=== PATIENT | female | born 2000 | race African-American/Black ===

== ENCOUNTER 2024-03-15 12:24 | Emergency (ER) | payer OTHER ==
[2024-03-15] MEDS ORDERED: Haloperidol Lactate 5 MG/ML VIAL ONE (12:46)
[2024-03-15] MEDS ORDERED: diphenhydrAMINE 50 MG/ML VIAL ONE (12:46)
[2024-03-15] MEDS ORDERED: LORazepam 2 MG/ML SYR.(CARPUJECT) ONE (12:46)
[2024-03-15 14:25] LABS: #Basophils 0.04 10x3/uL (0.0-0.2); #Eosinphils Less than 0.03 10x3/uL (0.0-0.7); %Basophils 0.7 % (0.0-1.0); %Eosinophils 0.3 % (0.0-10.0); %Lymphocytes 30.4 % (21.0-51.0); %Monocytes 7.3 % (0.0-10.0); %Neutrophils 61.1 % (42.0-75.0); Hematocrit 41.2 % (36.0-47.0); Hemoglobin 13.2 g/dL (12.0-16.0); Mean Corpuscular Hemoglobin 28.9 pg (27.0-31.0); Mean Corpuscular Volume 90.4 fL (78.0-98.0); Mean Platelet Volume 10.8 fL (7.4-10.4); Platelet Count 300 10x3/uL (130-400); RBC Distribution Width 12.7 % (11.5-14.5); Red Blood Cell (RBC) Count 4.56 mill/uL (4.20-5.40)
[2024-03-15 14:41] LABS: BHCG - Serum Negative (NEGATIVE); Pregs Control Background? CLEAR/WHITE (CLR/WHITE); Pregs Control Bar Appear? YES (CONTROL BAR)
[2024-03-15 14:44] LABS: ALT (SGPT) 98 U/L (8-55); AST (SGOT) 75 U/L (5-34); Alkaline Phosphatase 80 U/L (40-110); Anion Gap 20 mmol/L (10-20); BUN (Urea Nitrogen) 5 mg/dL (7.0-18.7); Bilirubin, Total 0.6 mg/dL (0.2-1.2); Calc. Creatinine Clearance 0 mL/min (70-130); Calcium 9.3 mg/dL (7.8-10.44); Carbon Dioxide 20 mmol/L (22-29); Chloride 112 mmol/L (98-107); Estimated GFR 97; Globulin 3.1 g/dL (2.4-3.5); Glucose 83 mg/dL (70-105); Lipase 9 U/L (8-78); Magnesium 1.8 mg/dL (1.6-2.6); Potassium 3.1 mmol/L (3.5-5.1); Protein, Total 7.1 g/dL (6.0-8.3); Sodium 149 mmol/L (136-145)
[2024-03-15 14:45] LABS: Bacteria/HPF None Seen HPF (None Seen); Bilirubin Negative (Negative); Blood, Urine Negative (Negative); CAUTI Indications for Culture Alt mental st,lethar; Clarity Clear (Clear); Glucose, Urine (Dipstick) Normal (Negative); Ketone, Urine 60 mg/dL (Negative); Leukocyte 25 Leu/uL (Negative); Nitrite Negative (Negative); Protein, Urine (Dipstick) 30 mg/dL (Neg-Trace); RBC/HPF 0-3 HPF (0-3); Specific Gravity, Urine 1.027 (1.002-1.036); Squamous Epithelial None Seen HPF (0-3)
[2024-03-15 14:46] LABS: Urine Culture Reflex No No
[2024-03-15 14:47] LABS: Troponin I Less than 0.010 ng/mL (< 0.028)
[2024-03-15 15:04] LABS: PTT 34.5 sec (22.9-36.1); Prothrombin Time 13.2 sec (12.0-14.7)
[2024-03-15] MEDS ORDERED: Potassium Chloride 20 MEQ (100 mL) BAG ONE (15:35)
[2024-03-15 16:08] LABS: Amphetamine Not Detected (NotDetected); Barbiturates Screen Not Detected (NotDetected); Benzodiazepine Screen Not Detected (NotDetected); Cocaine Metabolite Screen Not Detected (NotDetected); Methadone Not Detected (NotDetected); Methamphetamine Not Detected (NotDetected); Opiate Screen Not Detected (NotDetected); Oxycodone Screen Not Detected (NotDetected); Phencyclidine (PCP) Not Detected (NotDetected); THC/Cannabinoid Screen Not Detected (NotDetected); Tricyclic Screen Not Detected (NotDetected)
[2024-03-15 16:12] LABS: Acetaminophen Less than 10 mcg/mL (10.0-30.0); Alcohol Less than 10.0 mg/dL (Less than 10); Salicylate Less than 8.0 mg/dL (15.0-30.0)
[2024-03-15] MEDS ORDERED: Ziprasidone 20 MG VIAL ONE (18:40)
== END 2024-03-15 19:23 ==
LOC: ERS 12:24
DX: R41.82 Altered mental status, unspecified (principal); E87.6 Hypokalemia
CPT/HCPCS: 36415; 51701; 70450; 71045; 80053; 80306; 80307; 81001; 83690; 83735; 83880; 84443; 84484; 84703; 85025; 85610; 85730; 93005; 96365; 96366; 96372; 96375; J1200; J1630; J2060; J3480; J3486

== ENCOUNTER 2024-10-09 19:11 | Emergency (ER) | payer OTHER | END 2024-10-09 22:17 | disposition home or self-care (01) | LOC: ERS 19:11 | DX: R09.81 Nasal congestion (principal); R05.9 Cough, unspecified; F17.210 Nicotine dependence, cigarettes, uncomplicated | CPT/HCPCS: 71045; 87428 ==